=== PATIENT | male | born 1970 | race Caucasian/White ===

== ENCOUNTER 2016-10-09 12:09 | Day surgery (SDC) | payer OTHER ==
[~2016-10-09 12:09] MED LIST: KETOROLAC TROMETHAMINE 15 MG/ML VIAL IV PRN; METOCLOPRAMIDE HCL 5 MG/ML VIAL IV PRN; MORPHINE SULFATE 2 MG/ML DISP.SYRIN IV PRN; NORMAL SALINE 1,000 ML IV PRN; ONDANSETRON HCL/PF 2 MG/ML VIAL IV PRN; OXYBUTYNIN CHLORIDE 5 MG TABLET PO PRN; oxyCODONE HCL/ACETAMINOPHEN 1 TAB TABLET PO PRN
--- OUTSIDE RECORDS SUMMARY | 2016-10-09 12:14 | XMS REPORT | Clinical Summary ---
:1970 Author Organization [facility] [place] [address] Care Team Providers Name Role Phone Unavailable Primary Care Provider Unavailable Source Comments This disclosure is being made pursuant to the Heavy program and maynot contain all information available regarding this patient.[facility] Allergies Not on File Current Medications Be aware that medications may not be up to date as of this document. Alwaysverify current medications with the patient. Not on file Active Problems Not on file Social History Tobacco Use Types Packs/Day Years Used Date Never Assessed Sex Assigned at Date Recorded Not on file Last Filed Vital Signs Not on file Plan of Treatment Health Maintenance Due Date Last Done Comments Tetanus/Pertussis (1 - Tdap) 09/17/1991 INFLUENZA IMMUNIZATION (#1) 2016 Results Not on filefrom Last 3 Months
--- OUTSIDE RECORDS SUMMARY | 2016-10-09 12:14 | XMS REPORT | CCD ---
:1970 Author Name MARY IVEY Address [address] [facility] Unavailable [place], [place] [id number] Care Team Providers Name Role Phone AYESHA TAM Attending Physician Unavailable AYESHA TAM Er Physician 1 Unavailable Vital Signs Unknown or Not Available. Allergies Allergy Code Allergy Type Reaction Status No Known Drug Allergies 0 No known drug allergies Active Procedures Unknown or Not Available. History of Immunizations Unknown or Not Available. Problems Unknown or Not Available. Results Unknown or Not Available. Active Medications Unknown or Not Available. Medications Administered During Visit Unknown or Not Available. Encounters Encounter Diagnosis Diagnosis Code Start Date Cellulitis of right lower limb [id number] 07/21/2015 Social History Smoking Status Code Start Date End Date Never smoker [id number] Patient Decision Aids Unknown or Not Available. Discharge Instructions You were admitted to [facility] on 07/21/2015 16:47 with a principal diagnosis of Cellulitis of right lower limb You were discharged from [facility] on 07/21/2015 17:50 Should you have any questions prior to discharge, please contact a member of your healthcare team. If you have left the hospital and have any questions, please contact your primary care physician. Chief Complaint and Reason For Visit Chief Complaint Date of Onset SWOLLEN ANKLE Function Status Unknown or Not Available. Plan of Care Unknown or Not Available. Referral/Transition of Care Unknown or Not Available.
[2016-10-09] MEDS ORDERED: NORMAL SALINE 1,000 ML IV ONE (13:50)
--- NOTE | 2016-10-09 14:11 | OR ---
Operative Report - Dictated Report Narrative: Location: Location: Main OR Anesthesia: General Surgeon: Dr. Valadez Preoperative diagnosis: Large left lower pole stone(s) Postoperative diagnosis: Same, relative proximal ureteral narrowing Procedure: #1 Cystoscopy with Bilateral retrograde pyelograms #2 left flexible ureteroscopy with holmium laser lithotripsy and placement of a 7 by multi length double j stent Indications: 46-year-old male large left renal stone. We discussed options and elected to proceed with above-mentioned procedure. Description: Consent obtained. Patient brought to the operating room where general endotracheal anesthesia was induced. Placed in the dorsal lithotomy position. Prepped and draped. Timeout taken. Rigid cystoscope introduced into the bladder with ease and quick cystoscopy revealed no tumors, stones or suspicious lesions . Bilateral retrogrades obtained and interpreted by Dr. North. Right ureter identified intubated with 5 [place] catheter and right retrograde obtained. 5-7 mL of Isovue was injected. Distal, mid and proximal ureter delicate without filling defects or hydronephrosis. Because of patient positioning/height/limitations from bed I could not see the entire upper right collecting system but lower pole was not hydronephrotic with delicate calyces. . Left ureter identified intubated with 5 [place] catheter and left retrograde obtained. Distal and mid ureter were of normal caliber, looked capacious enough for ureteroscopy. No filling defects. Proximal ureter looked a little narrower on retrograde compared to the rest of the ureter. Again on this side I could only see the lower pole calyx and there was a large shadowing filling defect consistent with known location of stone. No hydronephrosis.. Super Stiff wire was advanced. 02/20 Ureteral access sheath was then introduced over the wire. Flexible ureteroscope was then used and advanced into the ureter through the access sheath. As the flexible scope entered the proximal ureter resistance increased quite a bit with the wire in place. The resistance was not from the sheath but rather patient's ureter which was snug on the scope. I elected to remove the wire and gently proceed proximally with scope which occurred with only very mild resistance. I was able to get into the renal pelvis and Schmitt nephroscopy was carried out. I could not reach the upper pole secondary to that resistance but I was able to check the lateral calyces and lower pole out discovering the large what appeared to be calcium stone 200 micron laser fiber was used. Energy of 0.2-0.4 joules and a rate of 40 hertz was used to fragment the stone into submillimeter pieces. Stone fragmented nicely and I do believe ESWL would work body habitus aside. Fragments did migrate into other calyces and visualization was difficult because flow would not bypass scope secondary to how tight the scope was on the ureter. As best I could see there were no clinically significant pieces and the entire stone was fragmented. Could not use fluoroscopy to confirm secondary to above-mentioned limitations. In an effort to improve flow I withdrew the scope down into the proximal ureter. It seemed as if the ureter actually became a bit tighter after scope had already bypassed proximal segment as I could not safely get back up into kidney. I passed Super Stiff wire through scope and tried to do that over the wire but again there was a bit more resistance than I liked. At this point I felt that was in the patient's best interest to abort and stent with 7 [place] stent so Super Stiff wire was left in place. Scope and access sheath were withdrawn down the ureter slowly without any difficulty. Stent deployed using fluoroscopy but obviously I was limited in what I could see with the proximal curl. I did see stent and the lower poles I was comfortable with placement. Bladder was drained Specimen: Not obtained EBL: 0 ml Condition: tolerated procedure Important findings: Presumably successfully treated stone although I could not perform I final nephroscopy to confirm secondary to the narrowing in the proximal ureter and my concern for getting into trouble. Successful 7 [place] stenting. Follow-up: Unfortunately I am gone next week. If patient is comfortable with stent my plan is to obtain a KUB and discuss possible second look ureteroscopy versus simple stent removal and see what happens. Obviously if KUB shows large fragments would proceed with second look ureteroscopy. If KUB negative can assume fragments are small however again I do not know how visible stones are on KUB in this individual who has a larger body habitus so there will be some inherent uncertainty. I will leave final decision up to patient after presenting options and discussing pros and cons.
[2016-10-09 15:53] VITALS: BP 143/90
== END 2016-10-09 12:10 | disposition home or self-care (01) ==
LOC: AMB 12:09
PROVIDERS: ATTEND Urology
PROC: 0T778DZ Dilation of Left Ureter with Intraluminal Device, Via Natural or Artificial Opening Endoscopic (ICD-10-PCS; 2016-10-09)
PROC: 0TF48ZZ Fragmentation in Left Kidney Pelvis, Via Natural or Artificial Opening Endoscopic (ICD-10-PCS; principal; 2016-10-09 13:30)
DX: N20.0 Calculus of kidney (principal); E66.01 Morbid (severe) obesity due to excess calories; Z68.43 Body mass index [BMI] 50.0-59.9, adult